=== PATIENT | male | born 1955 | race Caucasian/White ===

== ENCOUNTER → 2023-05-09 09:58 | Outpatient (BNVA) | payer OTHER, SELFPAY | PROVIDERS: Referring Provider Family Medicine; Visit Provider Surgery | DX: Z12.11 Encounter for screening for malignant neoplasm of colon (principal) | CPT/HCPCS: 99024; 99203 ==

== ENCOUNTER 2023-08-04 09:00 | Day surgery (SDC) | payer OTHER, SELFPAY ==
--- NOTE | 2023-08-04 09:08 | W.PM.OPSFHP ---
Same Day Surgery H&P Indication for Procedure/HPI DATE OF PROCEDURE: August 04, 2023 CHIEF COMPLAINT/INDICATIONFOR SURGICAL PROCEDURE: need for screening colonoscopy PREOP DIAGNOSIS: need for screening colonoscopy PLANNED PROCEDURE: Operation Date: 08/04/23 10:20 Proposed Procedures p 22783 colon G0121 screen colon a risk Z12.11(Not Applicable) - Johnny Sheldon MD Medications/Allergies* Home Medications Medication Instructions Recorded Confirmed Type cholecalciferol (vitamin D3) 50 50 mcg PO DAILY 05/09/23 08/02/23 History mcg (2,000 unit) capsule Allergies/Adverse Reactions Allergy/AdvReac Type Severity Reaction Status Date / Time No Known Allergies Allergy Unverified 05/09/23 10:47 Pertinent History/Comorbid Conditions* Social History Smoking and tobacco/nicotine status: current every day tobacco/nicotine user Pertinent Exam Findings alert, oriented x 3 and clear to auscultation bilaterally Recommendations Surgery/Procedure today Coding Level of Care Code Acute Code for Chg Fwmalena
[2023-08-04 09:11] VITALS: BMI 25.8
[2023-08-04 09:17] VITALS: BP 150/83; PULSE 71; RESP 18; TEMP 36.7; O2SAT 99
--- NOTE | 2023-08-04 09:20 | P.ANESASSM_ITS ---
Pre-Anesthetic Assessment Height/Weight: Height 1.78 m Weight 81.647 kg Temp Pulse Resp BP Pulse Ox O2 Del Method 98.0 F 71 18 150/83 99 Room Air 08/04/23 09:17 08/04/23 09:17 08/04/23 09:17 08/04/23 09:17 08/04/23 09:17 08/04/23 09:17 Preop Diagnosis: need for screening colonoscopy Operation Date: 08/04/23 10:20 [place] Procedures p [id number] colon G0121 screen colon a risk Z12.11(Not Applicable) - Johnny Sheldon MD Was Beta Tomy taken within 24 hours: N/A Was Clonidine taken within 24 hours: N/A Last intake: black coffee Last Intake: 07:00 Social No alcohol and No tobacco Exam alert, oriented x 3, clear to auscultation bilaterally and regular rate & rhythm Airway Submandibular: within normal limits Cervical ROM: within normal limits Mallampati: Class II History/ROS No significant history except as noted and No significant complaints Pulmonary None reported CV/HEM None reported None reported Hepatic None reported GI None reported Metabolic None reported Musc/skel None reported Neuropsych None reported Anesthetic Plan ASA status: 1 Anesthesia: MAC Risk of > 500 ml blood loss (7ml/kg in children): Yes, adequate IV access and fluids planned Medications/Allergies Home Medications Medication Instructions Recorded Confirmed Last Taken Type cholecalciferol (vitamin D3) 50 50 mcg PO DAILY 05/09/23 08/02/23 08/02/23 History mcg (2,000 unit) capsule magnesium citrate 150 ml PO DAILY #296 mL 05/09/23 08/04/23 08/02/23 Rx Allergies Allergy/AdvReac Type Severity Reaction Status Date / Time No Known Allergies Allergy Unverified 08/04/23 09:26 [facility] Anesthesia Social History Smoking and tobacco/nicotine status: current every day tobacco/nicotine user Data Anesthesia Cardiac Studies: No Data to Display
[2023-08-04] MEDS: sodium chloride 0.9% 1,000 ML 30 ML IV (09:25)
[2023-08-04 10:24] VITALS: BP 109/61; PULSE 63; RESP 18; TEMP 36.6; O2SAT 99
[2023-08-04 11:02] VITALS: BP 128/65; PULSE 63; RESP 18; O2SAT 100
--- NOTE | 2023-08-04 13:17 | ANE.PACU2 ---
Inpatient post-anesthesia follow up: Airway intact: Yes Vital signs: Temperature 97.8 F Pulse Rate 63 Respiratory Rate 18 Blood Pressure 128/65 Pulse Oximetry 100 Oxygen Delivery Me thod Room Air Oxygen Flow Rate Fraction of Inspir ed Oxygen Hydration adequate: Yes Nausea and vomiting: No Pain level: 2 Mental status: Baseline
== END 2023-08-04 11:02 | disposition home or self-care (01) ==
PROVIDERS: PCP Family Medicine; Visit Provider Surgery
PROC: 0DJD8ZZ Inspection of Lower Intestinal Tract, Via Natural or Artificial Opening Endoscopic (ICD-10-PCS; CPT 45378; principal; 2023-08-04 10:20)
DX: Z12.11 Encounter for screening for malignant neoplasm of colon (principal); D12.5 Benign neoplasm of sigmoid colon; F17.210 Nicotine dependence, cigarettes, uncomplicated
CPT/HCPCS: 45380; 45382; 88305; J2704; J7030

== ENCOUNTER → 2023-08-23 08:46 | Outpatient (BNVA) | payer OTHER, SELFPAY | PROVIDERS: PCP Family Medicine; Visit Provider Surgery | DX: Z09 Encounter for follow-up examination after completed treatment for conditions other than malignant neoplasm (principal) | CPT/HCPCS: 99213 ==

== ENCOUNTER 2025-03-27 10:37 | Outpatient (CLI) | payer OTHER, SELFPAY ==
--- NOTE | 2025-03-27 10:46 | MR_ITS ---
WS: [id number] MRI BRAIN WITH AND WITHOUT CONTRAST HISTORY: CONFUSION COMPARISON: None available. TECHNIQUE: Multiplanar imaging performed through the brain with MultiHance 16 ml's IV. No acute infarcts are seen. Real-white matter differentiation is well preserved. No significant cerebellar atrophy. No significant small vessel disease or prior infarct. Mild cerebral atrophy. Ventricles and extra-axial spaces are normal. Clivus and pituitary gland are normal. Visualized posterior fossa and brainstem are also normal. Postcontrast images are negative for masses or vascular malformations. Dural venous sinuses are normal. Paranasal sinuses: Heterogeneous opacification RIGHT maxillary sinus. Smaller mucous retention cyst in the floor of the LEFT maxillary sinus. No air-fluid levels. Mastoid air cells: Normal. Calvarium and scalp: Normal. MR/MR head wo/w con [id number] IMPRESSION: 1. No acute infarct or prior infarct. 2. Mild cerebral atrophy. 3. No significant small vessel disease. 4. No hippocampal atrophy. 5. No enhancing masses or vascular malformations.
[2025-03-27] MEDS: gadobenate dimeglumine 20 mL vial IV (11:35)
== END 2025-03-27 10:38 | disposition home or self-care (01) ==
LOC: RAD 10:41
PROVIDERS: PCP Family Medicine; Visit Provider Nurse Practitioner Family
DX: G31.89 Other specified degenerative diseases of nervous system (principal); J34.1 Cyst and mucocele of nose and nasal sinus; J34.89 Other specified disorders of nose and nasal sinuses
CPT/HCPCS: 70553

== ENCOUNTER 2025-03-29 14:28 | Outpatient (CLI) | payer OTHER, SELFPAY ==
--- NOTE | 2025-03-29 14:33 | US_ITS ---
WS: [id number] ULTRASOUND SOFT TISSUES medial LEFT lower leg. HISTORY: LEFT LOWER LEG MASS COMPARISON: None available. TECHNIQUE: 2-D and color Doppler imaging is submitted. Palpable area along the medial LEFT lower leg corresponds to a very superficial ovoid hypoechoic mass measuring 0.7 x 0.2 x 0.7 cm. This has the appearance of a small lymph node or sebaceous cyst. There is no vascularity. There is no connection to a deep vessel. US/US soft tissue/extremity [id number] IMPRESSION: Very small hypoechoic mass in the superficial soft tissues of the LEFT lower le g. May be a small sebaceous cyst or lymph node.
== END 2025-03-29 14:29 | disposition home or self-care (01) ==
LOC: RAD 14:29
PROVIDERS: PCP Family Medicine; Visit Provider Nurse Practitioner Family
DX: R22.42 Localized swelling, mass and lump, left lower limb (principal)
CPT/HCPCS: 76882

== ENCOUNTER 2025-04-15 12:07 | Outpatient (CLI) | payer OTHER, SELFPAY ==
--- NOTE | 2025-04-15 12:12 | USCV_ITS ---
Luis Felipe Gardner Age: 69 Gender: M : 1955 Exam Date: 04/15/2025 12:18 Ordering Phys: Anni Mosqueda APRN Technologist: TARA [place]am [place] [facility] [place] Indication: Left ankle lump (imaged by ultrasound in prior exam recently) HISTORY: left ankle lump PROCEDURES: Venous duplex imaging was performed in only the left lower extremity. The following venous structures were evaluated: common femoral vein, profunda vein, proximal portion of the greater saphenous vein, superficial femoral vein, and the popliteal vein. In addition, the posterior tibial and peroneal trunk were evaluated. FINDINGS: Normal 2-D Doppler and augmentation and compressibility throughout the lower extremity venous structures. Additional imaging through the proximal calf veins also reveals no thrombus. Limited evaluation of the greater saphenous vein is patent with no thrombus. CONCLUSIONS No DVT left lower extremity. Dr. Halle Allen DO (Electronically Signed) Final Date: 15 April 2025 12:53 S
== END 2025-04-15 12:08 | disposition home or self-care (01) ==
LOC: RAD 12:08
PROVIDERS: PCP Family Medicine; Visit Provider Nurse Practitioner Family
DX: R22.42 Localized swelling, mass and lump, left lower limb (principal)
CPT/HCPCS: 93971